=== PATIENT | male | born 1960 | race Caucasian/White ===

== ENCOUNTER 2018-05-12 17:35 | Emergency (ER) | payer OTHER ==
[~2018-05-12] VITALS: Ht 182.9 cm; Wt 95.3 kg
[~2018-05-12 17:35] MED LIST: ALCOHOL PADS1 EAC1; ASPIRIN EC81 M1 PO; BACTRIM DS TAB1 EACH PO; CIPROFLOXACIN500 M1 PO; DOXYCYCLINE 10100 MG PO; FLAGYL500 MG PO; FREESTYLE LITE1 EAC2; GLIPIZIDE 10 MG10 MG; GLUCOPHAGE XR500 MG PO; GLUCOTROL10 MG PO; GLYCOLAX POWDER17 G1 PO; HYDROCODONE-AP1 EAC6 PO; HYDROCODONE-APA1 TA1 PO; INSULIN; LAMISIL AT 1% C12 G1 TP; LEVEMIR; LISINOPRIL2.5 MG; LISINOPRIL2.5 MG PO; METFORMIN HCL500 MG; MINOCYCLINE HC100 M2 PO; NAPROSYN500 MG PO; NOHOMEMEDICATIONS; NORCO 5-325 TA1 EACH PO; NOVOLOG100 UNIT/1; NOVOLOG100 UNIT/1 SUBQ; NOVOLOG100 UNIT/M SUBQ; TRAMADOL 50 MG50 MG PO; ULTRAM 50MG TAB50 MG PO; ZYVOX600 MG PO; [UNRECOGNIZED DRUG - OTHER]; [UNRECOGNIZED DRUG - SUPPLY]; [UNRECOGNIZED DRUG - SUPPLY]
[2018-05-12] MEDS ORDERED: HUMALOG100 UNIT/2 (17:44)
[2018-05-12 18:01] LABS: ABSOLUTE BASOPHILS 0.1 thou/uL (0.0-0.2); ABSOLUTE EOSINOPHILS 0.2 thou/uL (0.0-0.7); ABSOLUTE LYMPHOCYTES 2.1 thou/uL (0.8-5.3); ABSOLUTE MONOCYTES 0.7 thou/uL (0.0-1.2); ABSOLUTE NEUTROPHILS 4.5 thou/uL (1.6-8.1); BASOPHILS 0.8 %; EOSINOPHILS 2.3 %; HEMATOCRIT 46.6 % (42.0-52.0); HEMOGLOBIN 15.8 gm/dL (14.0-18.0); MCH 30.9 pg (26.0-34.0); MCHC 33.9 g/dL (28.0-37.0); MCV 91.2 fL (80.0-100.0); MONOCYTES 9.1 %; MPV 8.8 fl. (7.2-11.1); NUCLEATED RBCS 0 /100WBC; PLATELET COUNT* 250 thou/uL (150-400); POLYS 59.8 %; RBC 5.11 mil/uL (4.50-6.00); RDW-CV 13.2 % (10.5-14.5); WBC 7.6 thou/uL (4.0-11.0)
[2018-05-12 18:07] LABS: CREATININE 0.8 mg/dL (0.6-1.3); INR 1.1; POTASSIUM 3.9 mmol/L (3.5-5.1); PROTIME 10.7 Seconds (9.20-11.50)
[2018-05-12 18:11] LABS: ALBUMIN 3.4 g/dL (3.4-5.0); TOTAL BILIRUBIN 0.5 mg/dL (<0.1-1.0); TOTAL PROTEIN 7.4 g/dL (6.4-8.2)
[2018-05-12 18:32] VITALS: BP 128/76
--- NOTE | 2018-05-13 11:05 | EKG ---
[place] [address] ELECTROCARDIOGRAM REPORT Name: MARVIN HAYES [id number] Admission: 05/12/18 Attend Phys: Discharge: 05/12/18 Date of : 58 Report #: [id number] THIS REPORT FOR: //name// [facility] ED Test Date: 2018-05-12 Test Time: 17:54:37 Pat Name: MARVIN HAYES Department: Room: Gender: M [employer]: : 1960 Requested By: Sundar Camp Order Number: [id number] MD: Joe Ramírez Measurements Intervals [place] Rate: 82 P: -15 LA: 158 QRS: 36 QRSD: 81 T: 58 QT: 371 QTc: 434 Interpretive Statements Sinus rhythm No previous ECG available for comparison Electronically Signed On 05-13-2018 11:05:35 CDT by Joe Ramírez [email or web address] <ELECTRONICALLY SIGNED> By: Joe Ramírez MD, [facility] 05/13/18 1105 1754 1754 Joe Ramírez MD, FACC /EPI
== END 2018-05-12 18:33 | disposition home or self-care (01) ==
LOC: M.ERS 17:35
PROVIDERS: Family Medicine
DX: R20.2 Paresthesia of skin (principal); E11.9 Type 2 diabetes mellitus without complications; Z86.14 Personal history of Methicillin resistant Staphylococcus aureus infection; Z86.19 Personal history of other infectious and parasitic diseases; Z79.4 Long term (current) use of insulin

== ENCOUNTER 2021-04-05 04:00 | Emergency (ER) | payer OTHER ==
[~2021-04-05] VITALS: Ht 182.9 cm; Wt 90.7 kg
[~2021-04-05 04:00] MED LIST changes: +HUMALOG100 UNIT/2
[2021-04-05] MEDS ORDERED: MINOCYCLINE HC100 M2 PO (04:40)
[2021-04-05 05:03] VITALS: BP 113/66
== END 2021-04-05 05:04 | disposition home or self-care (01) ==
LOC: M.ERS 04:00
DX: L03.115 Cellulitis of right lower limb (principal); E11.9 Type 2 diabetes mellitus without complications; Z79.84 Long term (current) use of oral hypoglycemic drugs; Z79.4 Long term (current) use of insulin; Z79.899 Other long term (current) drug therapy; Z86.19 Personal history of other infectious and parasitic diseases